=== PATIENT | female | born 1940 | race Caucasian/White ===

== ENCOUNTER → 2019-01-12 15:31 | Outpatient (CLI) | payer MEDICARE, SELFPAY ==
[2016-02-29 11:10] VITALS: BMI 22.8
[2019-01-15 16:07] LABS: Red Blood Cell Count Test/G6PD 4.02 x10E6/uL (3.77-5.28)
[2019-01-16 08:44] LABS: G6PD Quant Test 345 (146-376)
== END ==
PROVIDERS: Family Provider Internal Medicine; PCP Internal Medicine; Referring Provider Internal Medicine Rheumatology; Visit Provider Internal Medicine Rheumatology
DX: M06.4 Inflammatory polyarthropathy (principal); M35.1 Other overlap syndromes; M15.9 Polyosteoarthritis, unspecified; R76.8 Other specified abnormal immunological findings in serum
CPT/HCPCS: 36415; 82955

== ENCOUNTER 2019-02-11 12:58 | Emergency (ER) | payer MEDICARE, SELFPAY ==
[2019-02-11 13:00] VITALS: BP 137/92; PULSE 86; RESP 17; TEMP 36.9; O2SAT 95; BMI 23.5
--- NOTE | 2019-02-11 13:32 | ED.VIS.GEN ---
History of Present Illness Chief Complaint: Allergic Reaction Informant: Patient Onset: Days - 5 Context: Gradual Onset Timing: Continuous Current Severity: Moderate Maximum Severity: Moderate Narrative: Crys is taking sulfasalazine January 17. She stopped taking on Tuesday. On Tuesday she developed a rash. She denies chest pain or shortness of breath or throat swelling. The rash does not itch. She has a history of palmar plantar pustulosis and has started using hydrocortisone 1% cream to hands. Shortly after using the cream her hands began to swell. Her generalized rash does not itch. She denies fever chills. Prior similar symptoms: Yes Recent Illness/Hospitalization: No Past Medical History - Allergies and Home Meds Allergies/Adverse Reactions: Allergies hydroxychloroquine [From Plaquenil] Allergy (Verified 02/11/19 13:00) Rash sulfasalazine Allergy (Verified 02/11/19 13:00) Rash gluten Adverse Reaction (Verified 03/27/13 13:37) Nausea/Vom/Diarrhea Primary Care Physician: Mariella Zuniga MD [Primary Care Provider] - Prior records reviewed: Yes Past Medical History: - - fiore, plantar pustulosis, MCTD Lives: Spouse/ Significant Other Smoking Status: Current every day smoker Review of Systems All systems negative except as indicated General: Denies: Chills, Fever, Sweats Eyes: Denies: Visual changes - bilaterally, Diplopia ENT: Denies: Rhinorrhea, Sore throat Cardiovascular: Denies: Chest pain, Palpitations Respiratory: Denies: Dyspnea, Cough, Dyspnea on exertion Gastrointestinal: Denies: Abdominal pain, Nausea, Vomiting, Diarrhea, Melena, Hematochezia Genitourinary: Denies: Dysuria, Hematuria, Frequency Musculoskeletal: Denies: Back pain, Extremity Pain Skin: Reports: Rash - diffuse nonpruritic rash, -. Denies: Wounds Neurological: Denies: Headache, Weakness, Numbness Physical Exam Vital Signs/Narrative: Vital Signs Temp Pulse Resp BP Pulse Ox 02/11/19 13:00 98.5 F 86 17 137/92 H 95 Inital Vital Signs reviewed: Yes General: Well nourished, Well developed, No Acute Distress Head: Normocephalic, Atraumatic Eyes: Perrl, EOMI ENT: Moist mucous membranes, No rhinorrhea Neck: Supple, Nontender Cardiovascular: Regular rate, Regular rhythm, No murmurs Respiratory: No distress, CTA bilaterally, Chest nontender Abdomen: Soft, Nontender, Nondistended, Normal bowel sounds Back: Nontender, Normal Inspection Extremities: Nontender, No edema Skin: Normal color, Rash - She has a red papular diffuse rash cellulitis. Exam of palms reveal dry cracked red skin. There is swelling of the digits and hand without cellulitis. No palpable abscess present. Neurological: Alert, Oriented x3, Cranial nerves II-XII grossly intact, Normal Strength, Normal Sensation Psychological: Normal affect, Normal Mood Diagnostic/Tx/Re-eval - Medical Decision Making Her diffuse rash started weeks after she began the sulfasalazine. It may represent an allergic reaction. She had no signs of anaphylaxis or cellulitis. 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 She states that hand swelling started shortly after using hydrocortisone cream. She was instructed to stop both medications and follow-up with her finished goods planner and nurse practitioner hospitalist. She is prescribed a 10-day taper of prednisone which she has used in the past and she states it always makes her feel better. She is comfortable with discharge plan and remained hemodynamically stable and nontoxic in appearance. She is discharged in stable condition. ED Disposition - Plan for ED Patient: Disposition: Home or Assisted Living Diagnosis: Rash and nonspecific skin eruption Instructions: ALLERGIC REACTION, Drug Prescriptions: Prednisone 10 mg PO UD #33 tab Prescription Printed Referrals: Mariella Zuniga MD [Primary Care Provider] -
== END 2019-02-11 13:54 | disposition home or self-care (01) ==
PROVIDERS: Emergency Provider Nurse Practitioner; Family Provider Internal Medicine; PCP Internal Medicine
DX: R21 Rash and other nonspecific skin eruption (principal); F17.200 Nicotine dependence, unspecified, uncomplicated
CPT/HCPCS: 99282

== ENCOUNTER → 2019-02-12 | Outpatient (CLI) | payer MEDICARE, SELFPAY ==
[2019-02-11 13:00] VITALS: BMI 23.5
[2019-02-12 12:28] LABS: Erythrocyte Sedimentation Rate 16 mm/hr (0-30)
[2019-02-12 12:31] LABS: Absolute Lymphocyte Count 1.81 X10^3/uL (0.83-4.51); Absolute Neutrophil Count 4.3 X10^3/uL (2.0-7.7); Basophil# 0.04 X10^3/uL; Basophil% 0.6 % (0-1); Eosinophil# 0.24 X10^3/uL; Eosinophils% 3.3 % (0-5); Hematocrit 42.1 % (37-47); Hemoglobin 14.4 g/dL (12.0-15.0); Lymphocyte # 1.81 X10^3/ul (4.0); Mean Corp Hgb Conc 34.2 g/dL (32-36); Mean Corpuscular Hgb 36.8 pg (27.0-32.0); Mean Corpuscular Volume 107.7 fL (81-99); Monocyte# 0.87 X10^3/uL; NRBC Flagged by Analyzer 0 % (0-5); Neutrophil # 4.26 X10^3/uL (2.7-7.7); Neutrophil % 58.8 % (47-70); Platelet Count 319 K/mm3 (150-450); RBC Distribution Width CV 12.2 % (11.6-14.6); RBC Distribution Width SD 47.7 fl (35.1-43.9); Red Blood Count 3.91 M/mm3 (4.2-5.4); White Blood Count 7.2 K/mm3 (4.4-11.0)
[2019-02-12 13:05] LABS: ALB/GLOB Ratio 0.9 RATIO (0.9-2.4); AST(SGOT) 18 U/L (15-37); Alanine Aminotransfer ALT/SGPT 18 U/L (13-56); Albumin, Serum 3.6 g/dL (3.2-5.0); Alkaline Phosphatase 97 U/L (45-117); Anion Gap 6 (5-15); BUN 15 mg/dL (7-18); BUN/Creat Ratio 20.6 RATIO (10-20); CRP 4.56 mg/L (0.0-3.0); Chloride 108 mmol/L (98-107); Creatinine, Serum 0.73 mg/dL (0.55-1.02); EST Glomerular Filtration Rate 82 mL/min (>60); Est Glom Filt Rate - Afr Amer 99 mL/min (>60); Glucose 88 mg/dL (74-106); Potassium 3.8 mmol/L (3.5-5.1); Protein, Total 7.6 g/dL (6.4-8.2); Sodium Level 142 mmol/L (136-145)
== END | disposition home or self-care (01) ==
LOC: MTLAB 10:36
PROVIDERS: Family Provider Internal Medicine; PCP Internal Medicine; Referring Provider Internal Medicine Rheumatology; Visit Provider Internal Medicine Rheumatology
DX: M06.4 Inflammatory polyarthropathy (principal); M35.1 Other overlap syndromes; M15.9 Polyosteoarthritis, unspecified; R76.8 Other specified abnormal immunological findings in serum; K21.9 Gastro-esophageal reflux disease without esophagitis; G40.909 Epilepsy, unspecified, not intractable, without status epilepticus; F32.89 Other specified depressive episodes; E78.5 Hyperlipidemia, unspecified
CPT/HCPCS: 36415; 80053; 85025; 85652; 86140

== ENCOUNTER → 2019-06-25 09:45 | Outpatient (CLI) | payer MEDICARE, SELFPAY ==
[2019-06-25 12:25] LABS: Absolute Lymphocyte Count 1.79 X10^3/uL (0.83-4.51); Absolute Neutrophil Count 3.4 X10^3/uL (2.0-7.7); Basophil# 0.05 X10^3/uL; Basophil% 0.8 % (0-1); Eosinophil# 0.13 X10^3/uL; Eosinophils% 2.2 % (0-5); Hematocrit 42.9 % (37-47); Hemoglobin 13.7 g/dL (12.0-15.0); Lymphocyte # 1.79 X10^3/ul (4.0); Lymphocyte % 29.6 % (19-41); Mean Corp Hgb Conc 31.9 g/dL (32-36); Mean Corpuscular Hgb 34.2 pg (27.0-32.0); Monocyte# 0.65 X10^3/uL; Monocyte% 10.8 % (0-10); NRBC Flagged by Analyzer 0 % (0-5); Neutrophil % 56.3 % (47-70); Platelet Count 296 K/mm3 (150-450); RBC Distribution Width CV 12.2 % (11.6-14.6); Red Blood Count 4.01 M/mm3 (4.2-5.4)
[2019-06-25 12:55] LABS: AST(SGOT) 21 U/L (15-37); Alanine Aminotransfer ALT/SGPT 22 U/L (13-56); Albumin, Serum 3.6 g/dL (3.2-5.0); Alkaline Phosphatase 84 U/L (45-117); Anion Gap 4 (5-15); BUN 19 mg/dL (7-18); BUN/Creat Ratio 23.5 RATIO (10-20); Calcium,Total 8.8 mg/dL (8.5-10.1); Chloride 105 mmol/L (98-107); Creatinine, Serum 0.81 mg/dL (0.55-1.02); EST Glomerular Filtration Rate 72 mL/min (>60); Est Glom Filt Rate - Afr Amer 88 mL/min (>60); Globulin 3.7 g/dL (2.2-4.2); Glucose 86 mg/dL (74-106); Potassium 4.3 mmol/L (3.5-5.1); Protein, Total 7.3 g/dL (6.4-8.2); Sodium Level 140 mmol/L (136-145)
== END ==
PROVIDERS: PCP Internal Medicine; Referring Provider Internal Medicine Rheumatology; Visit Provider Internal Medicine Rheumatology
DX: M06.4 Inflammatory polyarthropathy (principal); M35.1 Other overlap syndromes; M15.9 Polyosteoarthritis, unspecified; R76.8 Other specified abnormal immunological findings in serum; K21.9 Gastro-esophageal reflux disease without esophagitis; G40.909 Epilepsy, unspecified, not intractable, without status epilepticus; F32.89 Other specified depressive episodes; E78.5 Hyperlipidemia, unspecified
CPT/HCPCS: 36415; 80053; 85025

== ENCOUNTER 2020-06-27 12:47 | Outpatient (RCR) | payer MEDICARE, SELFPAY | END 2020-06-27 23:59 | LOC: IMMUN 12:47 | PROVIDERS: PCP Internal Medicine; Referring Provider Family Medicine; Visit Provider Family Medicine | DX: Z23 Encounter for immunization (principal) | CPT/HCPCS: 0011A; 0012A; 91301 ==

== ENCOUNTER → 2021-03-17 13:44 | Outpatient (CLI) | payer MEDICARE, SELFPAY ==
--- NOTE | 2021-03-17 13:52 | CT_ITS ---
STUDY: CT ABDOMEN AND PELVIS WITH AND WITHOUT CONTRAST REASON FOR EXAM: Female, 80 years old. RECURRENT UTI RADIATION DOSAGE (If Supplied By Facility): CTDIvol = ( 14.01 ) mGy, DLP = ( 1862.18 ) mGycm TECHNIQUE: Transaxial images were obtained from the dome of the diaphragm to the symphysis pubis without oral contrast. IV 100mL Isovue-300 was administered. Sagittal and coronal images were reconstructed. Individualized dose optimization techniques were used for this CT. COMPARISON: Comparison is made with prior study dated 02/29/2016. FINDINGS: The visualized lung bases are unremarkable. The visualized portions of the heart are within normal limits. Normal liver. Normal gallbladder and extrahepatic biliary system. Normal spleen. Normal pancreas. Normal bilateral adrenal glands. There is a 1.2 cm cyst in the upper medial aspect of the right kidney. Normal left kidney. Normal visualized stomach. Normal small intestine. Normal colon. The appendix is visualized and appears normal. There is diffuse atherosclerotic calcification of the abdominal aorta and its major visceral branches, without a demonstrated aneurysm. Normal inferior vena cava. Normal retroperitoneum. Mildly thickened urinary bladder wall. Normal abdominal wall. There are degenerative changes of the visualized lumbar spine. Straightening of the normal lumbar lordosis. CT/CT Abd/Pelvis W/WO Contrast IMPRESSION: Bladder wall thickening. Small right renal cyst. Electronically Signed: Alpesh Dunn MD at 9:48 EDT , Service support ,
[2021-03-17 14:26] LABS: CREATININE FINGERSTICK 0.9 mg/dL (0.55-1.02); EGFR FINGERSTICK > 60.0000 mL/min (>60)
== END ==
PROVIDERS: PCP Internal Medicine; Referring Provider Urology; Visit Provider Urology
DX: R10.9 Unspecified abdominal pain (principal); R63.1 Polydipsia; Z87.440 Personal history of urinary (tract) infections
CPT/HCPCS: 74178; Q9967

== ENCOUNTER → 2021-09-22 | Outpatient (CLI) | payer MEDICARE, SELFPAY ==
--- NOTE | 2021-09-22 15:02 | BD_ITS ---
STUDY: DUAL ENERGY X-RAY ABSORPTIOMETRY / DXA REASON FOR EXAM: Female, 81 years old. [id number]. The patient is postmenopausal. TECHNIQUE: Bone Mineral Density (BMD) measurements of lumbar spine and bilateral hips were obtained. COMPARISON: None. FINDINGS: Lumbar Spine (L1-L4): g/cm2 (0.839) / T-score (-1.9) / Z-score (0.9) Findings are suggestive of osteopenia with a moderate fracture risk. Left Femur Total: g/cm2 (0.725) / T-score (-1.8) / Z-score (0.5) Left Femoral Neck: g/cm2 (0.687) / T-score (-1.5) / Z-score (1.0) Right Femur Total: g/cm2 (0.772) / T-score (-1.4) / Z-score (0.9) Right Femoral Neck: g/cm2 (0.616) / T-score (-2.1) / Z-score (0.4) BD/Dexa Bone Density Study IMPRESSION: The patient is considered osteopenic as outlined below according to World Alexander Organization (WHO) criteria with a moderate fracture risk. Reference Information: The T-score is the number of standard deviations above or below the standard which is normal for young adults at their peak bone mineral density. The World Health Organization (WHO) interprets the T-scores as follows: Above -1 Normal bone density Between -1 and -2.5 Osteopenia Equal to / or below -2.5 Osteoporosis As a practical clinical guideline, osteopenia may be graded as follows: Mild -1 through -1.5 Moderate -1.6 through -2.0 Severe -2.1 through -2.4 The Z-score is the number of standard deviations above or below age-matched controls. A Z-score of less than -1.5 would be considered abnormal. References: 1. NIH Osteoporosis and Related Bone Diseases www osteo.org 2. International Society for Clinical Densitometry www iscd.org 3. National Osteoporosis Foundation www nof.org Electronically Signed: Alpesh Dunn MD at 14:32 EDT ,
== END | disposition home or self-care (01) ==
LOC: OPBD 14:54
PROVIDERS: PCP Internal Medicine; Referring Provider Internal Medicine; Visit Provider Internal Medicine
DX: Z78.0 Asymptomatic menopausal state (principal)
CPT/HCPCS: 77080

== ENCOUNTER → 2022-08-06 | Outpatient (CLI) | payer MEDICARE, SELFPAY ==
--- NOTE | 2022-08-06 07:12 | ECHOCS_ITS ---
Reason For Study: chest pain Procedure This was a 2D Doppler, Color Flow transthoracic echocardiogram. The study was technically difficult. Contrast injection was performed. Exam performed in department. Left Ventricle Normal LV size. Left ventricular systolic function is normal. The estimated ejection fraction is 55 %. Stage 1 diastolic dysfunction. No regional wall motion abnormalities noted. Right Ventricle Normal RV size. Normal systolic function. Atria Normal left atrium. Normal right atrium. Bubble contrast study negative for right to left interatrial shunt. Mitral Valve Normal mitral valve. Tricuspid Valve Normal tricuspid valve. Mild (1+) tricuspid valve insufficiency. Pulmonary artery systolic pressure is 41 mmHg. Aortic Valve Trisinus/trileaflet aortic valve. Pulmonic Valve Normal pulmonic valve. Great Vessels Normal aortic root. The pulmonary artery is normal size. Normal inferior vena cava. Pericardium/Pleural No pericardial effusion. Medication Diluted definity 3ml given slow IV push to enhance endocardial definition. Performed a rapid injection of agitated mix of 9 cc saline and 1cc air to assess for atrial septal defect. MMode/2D Measurements & Calculations LVIDd: 4.7 cm IVSd: 0.99 cm Ao root diam: 2.7 cm LVIDs: 3.3 cm LVPWd: 0.90 cm RVDd: 2.2 cm FS: 30.2 % LAV(MOD-sp4): 50.0 ml LVAd ap4: 25.2 cm2 SV(MOD-sp4): 50.0 ml LVLd ap4: 6.7 cm EDV(MOD-sp4): 81.9 ml EDV(sp4-el): 80.9 ml LVAs ap4: 13.4 cm2 LVLs ap4: 4.7 cm ESV(MOD-sp4): 31.9 ml ESV(sp4-el): 32.4 ml EF(MOD-sp4): 61.1 % EF(sp4-el): 60.0 % SV(sp4-el): 48.5 ml LA A4 area: 18.7 cm2 LA dimension(2D): 4.1 cm RA A4 area: 13.4 cm2 Time Measurements MV dec time: 0.28 sec Doppler Measurements & Calculations MV E max sen: 69.7 cm/sec Lat Peak E' Sen: 7.9 cm/sec Med Peak E' Sen: 7.2 cm/sec MV A max sen: 83.5 cm/sec E/E' lat: 8.8 E/E' med: 9.7 MV E/A: 0.83 MV V2 max: 94.3 cm/sec MV dec slope: 251.1 cm/sec2 Ao V2 max: 148.3 cm/sec MV max P.6 mmHg Ao max P.8 mmHg MV V2 mean: 62.8 cm/sec Ao V2 mean: 97.0 cm/sec MV mean P.7 mmHg Ao mean P.4 mmHg MV V2 VTI: 32.7 cm Ao V2 VTI: 32.7 cm AV (velocity ratio): 0.81 LV V1 max: 128.7 cm/sec PA V2 max: 94.3 cm/sec TR max sen: 307.8 cm/sec LV V1 max P.6 mmHg PA V2 mean: 72.4 cm/sec TR max P.9 mmHg LV V1 mean P.9 mmHg LV V1 mean: 77.4 cm/sec LV V1 VTI: 26.4 cm ECHO/Echo Complete W/ Contrast Interpretation Summary Normal LV size. Left ventricular systolic function is normal. The estimated ejection fraction is 55 %. Stage 1 diastolic dysfunction. Bubble contrast study negative for right to left interatrial shunt. Ordering Physician: Leah Bui Referring Physician: Leah Bui Performed By: Kati Bhandari RCS
--- NOTE | 2022-08-09 08:19 | STRESSREP_ITS ---
Stress Test Report Pharmacologic myocardial perfusion stress test. 82-year-old lady with a history of chest pain Resting EKG demonstrates sinus rhythm with a rate of 61 bpm. T wave inversions are noted inferior laterally, resting blood pressure is 130/72 mmHg. 0.4 mg of regadenoson was infused per usual protocol followed by rapid intravenous saline flush injection. Continuous EKG monitoring was performed. The maximum heart rate was 80 bpm which was 58% of max impacted heart rate the maximum workload was 1 metabolic equivalent. At rest there were no ST or T wave changes noted to suggest ischemia and at peak infusion nonspecific ST changes were noted which did not meet the criteria for ischemia. No clinical angina is noted. The final blood pressure was 138/70 mmHg. Myocardial perfusion protocol. 11.6 mCi of technetium 99m sestamibi was injected at rest. 0.4 mg of regadenoson was infused per usual protocol. At peak infusion 32.9 mCi of te chnetium 99m sestamibi was injected stress images were obtained stress and rest images were reconstructed and compared in the short axis vertical long and horizontal long axis. Gated images were also obtained. Perfusion SPECT analysis: Review of the stress images demonstrate normal uptake of tracer noted in all areas of the myocardium. The resting images similar demonstrated normal uptake of tracer noted in all areas of the myocardium. No areas of reversibility are noted to suggest ischemia and no previous infarct is noted. Gated SPECT analysis: The gated ejection fraction is 82%. Conclusion: Normal pharmacologic myocardial perfusion stress test. Preserved ejection fraction.
== END | disposition home or self-care (01) ==
PROVIDERS: PCP Internal Medicine; Referring Provider Internal Medicine; Visit Provider Internal Medicine
DX: R00.2 Palpitations (principal); R07.89 Other chest pain
CPT/HCPCS: 78452; 93017; 93306; A9500; Q9957; A4216; C8929; J2785

== ENCOUNTER 2024-07-06 18:27 | Emergency (ER) | payer MEDICARE, SELFPAY ==
[2024-07-06 18:28] VITALS: BP 134/65; PULSE 58; RESP 15; TEMP 36.9; O2SAT 93; BMI 22.8
--- NOTE | 2024-07-06 18:42 | EKG12_ITS ---
Test Reason : Blood Pressure : */* mmHG Vent. Rate : 58 BPM Atrial Rate : 58 BPM P-R Int : 156 ms QRS Dur : 94 ms QT Int : 454 ms P-R-T Axes : 86 32 -84 degrees QTcB Int : [address] & T wave abnormality, consider inferior ischemia ST & T wave abnormality, consider anterolateral ischemia Abnormal ECG Confirmed by LOUIE TOBIN, KATIANA ([id number]), acquisitions editor NATY QUISPE ([id number]) on 07/09/2024 7:04:37 AM Referred By: Confirmed By: KATIANA PALMA MD
--- NOTE | 2024-07-06 18:42 | CT_ITS ---
PROCEDURE: ABDOMEN/PELVIS WITHOUT CONT TECHNIQUE: Abdomen and pelvis CT with intravenous contrast. IV CONTRAST: COMPARISON: None. FINDINGS: Lung bases: Clear Liver: Unremarkable. Gallbladder: Unremarkable. Spleen: Unremarkable. Pancreas: Unremarkable. Adrenals: Unremarkable. Kidneys: Unremarkable. Bladder: Unremarkable. Reproductive Organs: Unremarkable. Bowel: Unremarkable. Appendix: Normal. Lymph nodes: No suspicious lymph node enlargement. Vasculature: Major vascular structures are unremarkable. Peritoneum / Retroperitoneum: No ascites. No free air. Bones: Unremarkable. CT/Abdomen/Pelvis without Cont IMPRESSION: No acute CT findings. One or more dose reduction techniques were used (e.g., Automated exposure contr ol, adjustment of the mA and/or kV according to patient size, use of iterative reconstruction technique). Reading Location: [facility]
--- NOTE | 2024-07-06 18:43 | ED.VIS.GI ---
HPI HPI - GI History of Present Illness Chief Complaint: Abd Pain Narrative Narrative: 84-year-old female past medical history of seizures, on phenobarbital presents with abdominal pain and cramping as well as near syncope after going to the bathroom today. She states she usually has normal bowel movements daily and had 1 this morning. If she does not she will take a gentle laxative [id number]. Today, she was eating dinner prior to arrival that started experiencing diffuse abdominal cramping. She went to the bathroom and while seated on the toilet had a small bowel movement, but then had a near syncopal episode. She states she became very lightheaded and nauseated but did not vomit. She was not sure if she was going to have a seizure so she laid on the floor. EMS was called. Her symptoms are resolving and she feels improved. She denies any chest pain or shortness of breath associated with this. She relates history that years ago she was seen at the [facility] for tilt test and to rule out vasovagal syncope/near syncope versus seizures. She did not lose control of her bowel or bladder. She states that she was not sure what was going to happen so she laid on the floor until EMS arrived. 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 Hemorrhoids Mucopurulent chronic bronchitis Hyperlipidemia Temporal lobe epilepsy Home Medications ?Medication ?Instructions ?Recorded ?Last Taken ?Type cyanocobalamin (vitamin B-12) 500 1,000 mcg PO DAILY@0800 03/27/13 Unknown History mcg tablet pyridoxine (vitamin B6) 50 mg 50 mg PO DAILY 03/27/13 Unknown History tablet gemfibrozil 600 mg tablet 600 mg PO BID 02/29/16 Unknown History Probiotic-10 (with inulin) 10 OTHER DAILY 08/06/22 Unknown History prednisone 10 mg tablet 5 mg PO UD 08/06/22 Unknown History acetaminophen 500 mg tablet 500 mg PO TID PRN 08/23/22 Unknown History ascorbic acid (vitamin C) 500 mg mg PO 08/23/22 Unknown History capsule d-mannose 500 mg capsule mg PO 08/23/22 Unknown History folic acid 1 mg tablet 1 mg PO DAILY 08/23/22 Unknown History levalbuterol tartrate 45 2 inh inhalation Q6H PRN 08/23/22 Unknown History mcg/actuation aerosol inhaler phenobarbital 32.4 mg tablet 129.6 mg PO QHS 08/23/22 Unknown History thiamine HCl (vitamin B1) 50 mg 50 mg PO DAILY 08/23/22 Unknown History tablet Cholecalciferol (Vitamin D3) 5,000 unit PO DAILY 08/30/23 Unknown History [Vitamin D3] Allergy/AdvReac Type Severity Reaction Status Date / Time amoxicillin Allergy Diarrhea Verified 07/06/24 18:36 hydroxychloroquine (From Allergy Rash Verified 07/06/24 18:36 Plaquenil) sulfasalazine Allergy Rash Verified 07/06/24 18:36 acetaminophen (From Percocet) AdvReac Nausea Verified 07/06/24 18:36 albuterol AdvReac Other Verified 07/06/24 18:36 epinephrine AdvReac Other Verified 07/06/24 18:36 gluten AdvReac Nausea/Vom/ Verified 07/06/24 18:36 Diarrhea levofloxacin (From Levaquin) AdvReac Nausea Verified 07/06/24 18:36 oxycodone (From Percocet) AdvReac Nausea Verified 07/06/24 18:36 Family History Brother Cancer Mother Cancer Brother Heart disease Father Heart disease Surgical History H/O rectal sphincterotomy Hx of cataract surgery Colonoscopy planned H/O lateral meniscus repair of left knee Social History Smoking Status: Current every day smoker tobacco type: cigarettes alcohol intake: current substance use type: does not use ROS ROS ED ROS Narrative Constitutional: No fever, no chills. Cardiovascular: No chest pain. No palpitations. No pedal edema. Respiratory: No cough, no shortness of breath. Abdominal: Positive abdominal cramping abdominal pain. Positive nausea. No vomiting. Small bowel movement prior to near syncopal episode. Genitourinary: No dysuria. No hematuria. Musculoskeletal: No myalgias. No arthralgias. Neurologic: No headaches. No dizziness. Positive lightheadedness and near syncope. Skin: No rash. No change in color. Psychiatric: No depression. No anxiety. EXAM Physical Exam Narrative Exam Narrative: Afebrile. Vital signs noted. Nontoxic-appearing. Awake, alert, and oriented. Cardiovascular examination reveals a mild bradycardia at 58 bpm. Lungs are clear to auscultation bilaterally. Abdomen is soft and nontender with positive bowel sounds, no guarding or rebound. Neurological examination shows her to be awake, alert, and oriented. Nonfocal, nonlateralizing. Const Vital Signs: 07/06/24 18:28 07/06/24 20:13 Temperature 98.5 F Temperature Source Oral Pulse Rate 58 L 75 Respiratory Rate 15 15 Blood Pressure 134/65 H 121/52 H Blood Pressure Mean 88 75 Pulse Ox 93 91 Oxygen Delivery Method Room Air Room Air MDM MDM MDM Narrative Medical decision making narrative: Differential diagnosis includes but not limited to vasovagal near syncope. Her abdominal cramping could be secondary to cramping versus diverticulitis versus obstruction. I have low suspicion for the latter 2 diagnoses because the history and physical does not support this. She is feeling moderately improved. I will obtain CT of the abdomen and pelvis without contrast to rule out obstruction or any acute process. EKG and basic laboratory work will be obtained to help rule out dehydration as a cause of her near syncope as well. Once again, she feels improved and almost back to normal. I do feel that she probably had a vasovagal near syncopal episode while she was possibly straining to have a bowel movement. EKG obtained interpreted by myself independently as sinus bradycardia at 58 bpm with T wave inversion in V3 through V6. In review of previous diagnostic EKGs, she has had a T wave inversion in EKG dated 2022. QTc is normal at 445 ms. No STEMI. I reviewed her initial laboratory work, she has neutropenia of 3.9 which I think is nonspecific, but can also be seen with COVID, normal hemoglobin of 14.3, hematocrit 42.4. Platelet count 305. She did state that she has a cold and is currently wearing a mask which I had her remove and she does not have dry mucous membranes. Her family then requested that she be swabbed for COVID, influenza, and RSV. I reviewed her respiratory swab and she has a positive for COVID. She states that she went to dinner with friends on Tuesday, approximately 7 days ago, and on Tuesday she began having symptoms. I discussed with her the use of Paxlovid, and through shared decision making she declined as she states that she is feeling improved and that she never had a fever. At this point in time, I feel is can be discharged to follow-up with her primary care provider. I do feel she probably had more of a vasovagal near syncope. She has been able to ambulate to the bathroom without difficulty. Additionally, her had the same symptoms of upper respiratory infection but they state they never had fever. Return instructions to the emergency department were reviewed. Disposition is discharged home in stable condition. History & Record Review Discussion w/independent historian: Patient and Family Lab Data Attestation: I reviewed the patient's lab results. Labs: Laboratory Results - last 24 hr 07/06/24 07/06/24 18:30 20:08 WBC 3.9 L RBC 4.11 L Hgb 14.3 Hct 42.4 MCV 103.2 H MCH 34.8 H MCHC 33.7 RDW Std Deviation 44.6 H RDW Coeff of Jenni 11.8 Plt Count 305 MPV 8.8 Immature Gran % (Auto) 0.300 Neut % (Auto) 36.8 L Lymph % (Auto) 42.5 H [place] % (Auto) 17.6 H Eos % (Auto) 1.5 Baso % (Auto) 1.3 H Absolute Neuts (auto) 1.4 L Absolute Lymphs (auto) 1.66 Nucleated RBC % 0 Sodium 135 L Potassium 3.9 Chloride 97 L Carbon Dioxide 30.0 Anion Gap 8 BUN 24 H Creatinine 0.92 Estim Creat Clear Calc 41.09 Est GFR (MDRD) Af Amer 74 Est GFR (MDRD) Non-Af 61 BUN/Creatinine Ratio 26.0 H Glucose 134 H Calcium 9.6 Total Bilirubin 0.20 AST 53 H ALT 32 Alkaline Phosphatase 91 Troponin I High Sens 5 Total Protein 7.6 Albumin 3.6 Globulin 4.0 Albumin/Globulin Ratio 0.9 Lipase 51 Urine Color Yellow Urine Clarity Clear Urine pH 5.0 Ur Specific Wilson 1.025 Urine Protein 30 H Urine Glucose (UA) Normal Urine Ketones Negative Urine Occult Blood Negative Urine Nitrite Negative Urine Bilirubin Negative Urine Urobilinogen Normal Ur Leukocyte Esterase 25 H Urine RBC 0 SEEN Urine WBC 0-5 SEEN Ur Squamous Epith Cells 0-5 SEEN Urine Bacteria 0 SEEN Urine Mucus 0 SEEN Radiography Diagnostic Testing: Clinical Impression(s) from Imaging Studies Abdomen/Pelvis CT 07/06/24 18:42 IMPRESSION: No acute CT findings. One or more dose reduction techniques were used (e.g., Automated exposure control, adjustment of the mA and/or kV according to patient size, use of iterative reconstruction technique). Reading Location: [facility] Discharge Plan Triage Chief Complaint: Abd Pain ED Provider: Gamal Welch Dx/Rx/DC Orders Clinical Impression: COVID, Abdominal cramping, Vasovagal near syncope Instructions: Coronavirus Disease 2019 (COVID-19): Caring for Yourself or Others, ED Abdominal Pain Unkn Cause Fem, ED Near-Fainting- Vagal Reaction Prescriptions: No Action d-mannose 500 mg capsule PO acetaminophen 500 mg tablet 500 mg PO TID PRN levalbuterol tartrate 45 mcg/actuation HFA aerosol inhaler 2 inh inhalation Q6H PRN ascorbic acid (vitamin C) 500 mg capsule PO folic acid 1 mg tablet 1 mg PO DAILY thiamine HCl (vitamin B1) 50 mg tablet 50 mg PO DAILY cyanocobalamin (vitamin B-12) 500 MCG tablet 1,000 mcg PO DAILY@0800 pyridoxine (vitamin B6) 50 MG tablet 50 mg PO DAILY phenobarbital 32.4 mg tablet 129.6 mg PO QHS gemfibrozil 600 MG tablet 600 mg PO BID Patient Comments: TAKE 1 TABLET BY MOUTH TWICE DAILY. Cholecalciferol (Vitamin D3) [Vitamin D3] 5,000 UNIT capsule 5,000 unit PO DAILY Patient Comments: ALTERNATE 1 PER DAY/2 PER DAY EVERY OTHER DAY. prednisone 10 MG tablet 5 mg PO UD Rx Instructions: Take 4 tablets daily for 3 days, then 3 daily for 3 days, then 2 daily for 3 days, then 1 a day for 3 days then 1 QOD for 3 doses. Probiotic-10 (with inulin) 10 units capsule 10 OTHER DAILY Primary Care Provider: Mariella Zuniga Referrals: Mariella Zuniga MD [Primary Care Provider] - 3-5 Days if not improving Activity Restrictions/Additional Instructions: Return with new or worsening symptoms. Print Language: French Disposition Disposition: Home, Self Care
[2024-07-06 19:03] LABS: Absolute Lymphocyte Count 1.66 X10^3/uL (0.83-4.51); Absolute Neutrophil Count 1.4 X10^3/uL (2.0-7.7); Basophil# 0.05 X10^3/uL; Basophil% 1.3 % (0-1); Eosinophil# 0.06 X10^3/uL; Eosinophils% 1.5 % (0-5); Hematocrit 42.4 % (37-47); Hemoglobin 14.3 g/dL (12.0-15.0); Lymphocyte # 1.66 X10^3/ul (0.83-4.51); Lymphocyte % 42.5 % (19-41); Mean Corp Hgb Conc 33.7 g/dL (32-36); Mean Corpuscular Hgb 34.8 pg (27.0-32.0); Mean Corpuscular Volume 103.2 fL (81-99); Mean Platelet Vol. 8.8 fl (6.2-12.0); Monocyte# 0.69 X10^3/uL; Monocyte% 17.6 % (0-10); NRBC Flagged by Analyzer 0 % (0-5); Neutrophil # 1.44 X10^3/uL (2.7-7.7); Neutrophil % 36.8 % (47-70); Platelet Count 305 K/mm3 (150-450); RBC Distribution Width CV 11.8 % (11.6-14.6); RBC Distribution Width SD 44.6 fl (35.1-43.9); Red Blood Count 4.11 M/mm3 (4.2-5.4); White Blood Count 3.9 K/mm3 (4.4-11.0)
[2024-07-06 19:50] LABS: ALB/GLOB Ratio 0.9 RATIO (0.9-2.4); AST(SGOT) 53 U/L (15-37); Alanine Aminotransfer ALT/SGPT 32 U/L (13-56); Albumin, Serum 3.6 g/dL (3.2-5.0); Alkaline Phosphatase 91 U/L (45-117); Anion Gap 8 (5-15); BUN 24 mg/dL (7-18); Calcium,Total 9.6 mg/dL (8.5-10.1); Chloride 97 mmol/L (98-107); Creatinine, Serum 0.92 mg/dL (0.55-1.02); EST Glomerular Filtration Rate 61 mL/min (>60); Est Glom Filt Rate - Afr Amer 74 mL/min (>60); Estimated Creatinine Clearance 41.09 ml/min; Glucose 134 mg/dL (74-106); Lipase 51 U/L (13-75); Potassium 3.9 mmol/L (3.5-5.1); Protein, Total 7.6 g/dL (6.4-8.2); Sodium Level 135 mmol/L (136-145); Troponin-I HS 5 pg/mL (3.0-54.0)
[2024-07-06 20:13] VITALS: BP 121/52; PULSE 75; RESP 15; O2SAT 91
[2024-07-06 20:18] LABS: Bacteria 0 SEEN /hpf (None Seen); Mucous, Urine 0 SEEN /hpf (<or=2+); Red Blood Cells-Urine 0 SEEN /hpf (0-5)
[2024-07-06 20:34] LABS: Color, Urine Yellow (Yellow); Glucose, Dipstick Normal (Normal); Ketone-Dipstick Negative (Negative); Leukocyte Esterase-Dipstick 25 /ul (Negative); Nitrite-Dipstick Negative (Negative); Occult Blood-Urine Negative /ul (Negative); Protein-Dipstick 30 mg/dl (Negative); Specific Gravity, Urine 1.025 (1.002-1.030); Urine Bilirubin Dipstick Negative (Negative); Urine Clarity Clear (Clear); Urine Urobilinogen Normal (Normal)
[2024-07-06 20:52] LABS: White Blood Cells 0-5 SEEN /hpf (0-5)
[2024-07-06 20:53] LABS: Squamous Epithelial Cells - UA 0-5 SEEN /hpf (5-10)
[2024-07-06] MEDS: 0.9% Normal Saline (500mL Bag) 500 ML 999 ML IV (21:02)
[2024-07-06 21:37] VITALS: BP 121/52; PULSE 58; RESP 18; TEMP 36.6; O2SAT 98
== END 2024-07-06 21:39 | disposition home or self-care (01) ==
PROVIDERS: Emergency Provider Emergency Medicine; PCP Internal Medicine; Visit Provider Emergency Medicine
DX: U07.1 COVID-19 (principal); J41.1 Mucopurulent chronic bronchitis; R10.9 Unspecified abdominal pain; R55 Syncope and collapse; E78.5 Hyperlipidemia, unspecified; E55.9 Vitamin D deficiency, unspecified; F32.A Depression, unspecified; M85.80 Other specified disorders of bone density and structure, unspecified site; F17.210 Nicotine dependence, cigarettes, uncomplicated; Z88.0 Allergy status to penicillin; Z88.2 Allergy status to sulfonamides; Z79.899 Other long term (current) drug therapy
CPT/HCPCS: 74176; 80053; 81001; 83690; 84484; 85025; 87631; 93005; 96360; 99285; A4216